=== PATIENT | female | born 1950 | race Asian ===

== ENCOUNTER 2020-06-08 10:47 | Emergency (ER) | payer MEDICARE ==
[~2020-06-08] VITALS: Ht 152.4 cm; Wt 59.0 kg
[2020-06-08] MEDS ORDERED: TDAP DIPH,PERTUSS,TET VAC/PF 0.5 ML DISP.SYRIN IM ONE ×2 (11:15→11:34)
[2020-06-08] MEDS ORDERED: LIDOCAINE 1%-EPI 1:100,000 20 ML VIAL IJ ONE (11:15)
--- NOTE | 2020-06-08 11:15 | NUR ---
PT IS IN ROOM #1B. DR DUONG EVALUATED THE PT.
[2020-06-08] MEDS ORDERED: LIDOCAINE 1%-EPI 1:100,000 20 ML VIAL ONE (11:34)
[2020-06-08] MEDS ORDERED: IBUP-1955 PO (12:10)
[2020-06-08] MEDS ORDERED: HYDR-3972 PO (12:10)
[2020-06-08 12:20] VITALS: BP 132/68
--- NOTE | 2020-06-08 12:20 | NUR ---
PT WAS D/C'd TO HOME. D/C INSTRUCTIONS GIVEN TO THE PT BY DR DUONG.
== END 2020-06-08 12:21 | disposition home or self-care (01) ==
LOC: ER 10:47
DX: S01.01XA Laceration without foreign body of scalp, initial encounter (principal); W01.0XXA Fall on same level from slipping, tripping and stumbling without subsequent striking against object, initial encounter; Y92.89 Other specified places as the place of occurrence of the external cause; E11.9 Type 2 diabetes mellitus without complications; E78.5 Hyperlipidemia, unspecified; I10 Essential (primary) hypertension; S09.90XA Unspecified injury of head, initial encounter
CPT/HCPCS: 12002; 70450; 72125; 90471; 90715; 99285; J3490; A4217; A4663

== ENCOUNTER 2020-06-11 15:40 | Emergency (ER) | payer MEDICARE, OTHER ==
[~2020-06-11] VITALS: Ht 152.4 cm; Wt 59.0 kg
[~2020-06-11 15:40] MED LIST: HYDR-3972 PO; IBUP-1955 PO
--- NOTE | 2020-06-11 16:00 | NUR ---
Patient discharged to home in stable condition. Written and verbal after care instructions given. Patient verbalizes understanding of instructions. Stressed follow up or return to ER for worsening s/s.
== END 2020-06-11 16:02 | disposition home or self-care (01) ==
LOC: EDBD 15:40 → ER 15:40
DX: S01.01XD Laceration without foreign body of scalp, subsequent encounter (principal); X58.XXXD Exposure to other specified factors, subsequent encounter; R03.0 Elevated blood-pressure reading, without diagnosis of hypertension; E11.9 Type 2 diabetes mellitus without complications; E78.5 Hyperlipidemia, unspecified
CPT/HCPCS: A4663

== ENCOUNTER 2020-06-15 10:00 | Emergency (ER) | payer MEDICARE, OTHER ==
[~2020-06-15] VITALS: Ht 152.4 cm; Wt 59.0 kg
--- NOTE | 2020-06-15 10:43 | NUR ---
PT WAS EVALUATED BY DR KUHN. PT WAS D/C'd TO HOME. D/C INSTRUCTIONS GIVEN TO THE PT BY DR KUHN.
[2020-06-15 10:44] VITALS: BP 133/69
== END 2020-06-15 10:45 | disposition home or self-care (01) ==
LOC: ER 10:01
DX: S01.01XD Laceration without foreign body of scalp, subsequent encounter (principal); W19.XXXD Unspecified fall, subsequent encounter; E11.9 Type 2 diabetes mellitus without complications; E78.5 Hyperlipidemia, unspecified
CPT/HCPCS: A4663

== ENCOUNTER 2022-02-12 06:48 | Emergency (ER) | payer MEDICARE, OTHER ==
[~2022-02-12] VITALS: Ht 160 cm; Wt 62.6 kg
[2022-02-12] MEDS ORDERED: predniSONE 20 MG TABLET PO ONE (07:00)
[2022-02-12] MEDS ORDERED: diphenhydrAMINE 25 MG CAP PO ONE ×2 (07:00→07:05)
[2022-02-12] MEDS ORDERED: FAMOTIDINE 20 MG TABLET PO ONE (07:00)
[2022-02-12] MEDS ORDERED: FAMOTIDINE 20 MG TABLET ONE ×2 (07:04→07:05)
[2022-02-12] MEDS ORDERED: predniSONE 20 MG TABLET ONE (07:05)
[2022-02-12] MEDS ORDERED: DIPH25CA83 PO (07:10)
[2022-02-12] MEDS ORDERED: FAMO-132 PO (07:10)
[2022-02-12] MEDS ORDERED: PRED20TA PO (07:10)
[2022-02-12 07:18] VITALS: BP 144/72
== END 2022-02-12 07:19 | disposition home or self-care (01) ==
LOC: ER 06:57
DX: T78.40XA Allergy, unspecified, initial encounter (principal); X58.XXXA Exposure to other specified factors, initial encounter; L50.0 Allergic urticaria; I10 Essential (primary) hypertension; E11.9 Type 2 diabetes mellitus without complications; E78.5 Hyperlipidemia, unspecified
CPT/HCPCS: 99284; Q0163; J7512; A4663

== ENCOUNTER 2024-03-17 09:48 | Emergency (ER) | payer MEDICARE, OTHER ==
[~2024-03-17] VITALS: Ht 147.3 cm; Wt 42.6 kg
[~2024-03-17 09:48] MED LIST changes: +DIPH25CA83 PO; +FAMO-132 PO; +PRED20TA PO
[2024-03-17 10:27] LABS: BASOPHILS % (AUTO) 0.5 % (0.0-2.0); EOSINOPHILS % (AUTO) 0.5 % (0.0-7.0); HEMATOCRIT 28.4 % (31.2-41.9); HEMOGLOBIN 9.9 g/dL (10.9-14.3); LYMPHOCYTES # (AUTO) 1.4 K/uL (0.8-4.8); LYMPHOCYTES % (AUTO) 30.5 % (20.5-51.5); MEAN CORPUSCULAR HEMOGLOBIN 36.7 uug (24.7-32.8); MEAN CORPUSCULAR HGB CONC 35 g/dL (32.3-35.6); MEAN CORPUSCULAR VOLUME 104.9 fL (75.5-95.3); MONOCYTES # (AUTO) 0.3 K/uL (0.1-1.30); MONOCYTES % (AUTO) 6.3 % (0.0-11.0); NEUTROPHILS # (AUTO) 2.8 K/uL (1.8-8.9); NEUTROPHILS % (AUTO) 62.2 % (38.5-71.5); PLATELET COUNT (AUTO) 280 K/uL (179-408); RED CELL DISTRIBUTION WIDTH 14.4 % (12.3-17.7); WHITE BLOOD COUNT (AUTO) 4.4 K/uL (3.8-11.8)
[2024-03-17 10:32] LABS: DIFFERENTIAL COMMENT 1
[2024-03-17 10:36] LABS: CALCIUM 9.8 mg/dL (8.5-10.1); CARBON DIOXIDE 25 mmol/L (21-32); CHLORIDE 103 mmol/L (98-107); CREATININE 0.9 mg/dL (0.6-1.3); GLUCOSE 90 mg/dL (74-106); POTASSIUM 3.9 mmol/L (3.5-5.1); SODIUM SERUM 139 mmol/L (136-145); UREA NITROGEN, BLOOD 15 mg/dL (7-18)
[2024-03-17 10:48] LABS: ALANINE AMINOTRANSFERASE 26 U/L (14-59); ALBUMIN 3.4 g/dL (3.4-5.0); ALKALINE PHOSPHATASE 43 U/L (50-136); ASPARTATE AMINOTRANSFERASE 27 U/L (15-37); BILIRUBIN,DIRECT 0.2 mg/dL (0.0-0.2); BILIRUBIN,TOTAL 0.6 mg/dL (0.2-1.0); NT-PRO BNP 40 pg/mL (0-125); TOTAL PROTEIN, SERUM 7.6 g/dL (6.4-8.2)
[2024-03-17] MEDS: IV NORMAL SALINE 1000 ML BAG IV ONE (11:03)
[2024-03-17] MEDS ORDERED: SWABABLE VALVE TRANSFER SET EA MC ONE (11:21)
[2024-03-17] MEDS ORDERED: IV NORMAL SALINE 250 ML IV ONE (11:21)
[2024-03-17] MEDS ORDERED: IOHEXOL 350 100 ML INFUS..BTL ONE (11:21)
[2024-03-17] MEDS ORDERED: DOXYCYCLINE HYCLATE 100 MG TABLET ONE (13:14)
[2024-03-17] MEDS ORDERED: GUAIFENESIN/DEXTROMETHORPHAN 5 ML UDC ONE (13:15)
[2024-03-17] MEDS: GUAIFENESIN/DEXTROMETHORPHAN 5 ML UDC PO ONE (13:21)
[2024-03-17] MEDS: DOXYCYCLINE HYCLATE 100 MG TABLET PO ONE (13:21)
[2024-03-17] MEDS ORDERED: PROM5SYR PO (13:34)
[2024-03-17] MEDS ORDERED: DOXY100T2 PO (13:34)
[2024-03-17 13:51] VITALS: BP 141/67; TEMP 98.6; O2SAT 97
== END 2024-03-17 13:52 | disposition home or self-care (01) ==
LOC: ER 09:48
DX: J20.9 Acute bronchitis, unspecified (principal); R91.8 Other nonspecific abnormal finding of lung field; E11.9 Type 2 diabetes mellitus without complications; E78.5 Hyperlipidemia, unspecified; I11.9 Hypertensive heart disease without heart failure; Z79.52 Long term (current) use of systemic steroids; Z20.822 Contact with and (suspected) exposure to COVID-19
CPT/HCPCS: 99285; 96360; 71275; 71045; 87426; 87804 ×2; 80076; 80048; 83880; 85025; 85379; 85730; 36415; Q9967; J7040; A4606; A4663